=== PATIENT | male | born 1995 | race Caucasian/White ===

== ENCOUNTER 2023-12-02 08:55 | Emergency (ER) | payer MEDICAID ==
[~2023-12-02] VITALS: Ht 177.8 cm; Wt 92.0 kg
[2023-12-02 10:00] VITALS: BP 121/81; PULSE 98; RESP 18; TEMP 97.1
[2023-12-02] MEDS: LIDOCAINE 5% TRANSDERMAL PATCH TD ONE (10:05)
[2023-12-02] MEDS: ACETAMINOPHEN 500 MG TABLET PO ONE (10:06)
== END 2023-12-02 11:27 | disposition home or self-care (01) ==
LOC: EMS 08:57
DX: S13.4XXA Sprain of ligaments of cervical spine, initial encounter (principal); R51.9 Headache, unspecified; V49.88XA Car occupant (driver) (passenger) injured in other specified transport accidents, initial encounter; Y93.89 Activity, other specified; Y92.89 Other specified places as the place of occurrence of the external cause; Y99.8 Other external cause status
CPT/HCPCS: 70450; 71101; 72125; 99284